=== PATIENT | male | born 1955 | race Caucasian/White ===

== ENCOUNTER → 2016-04-19 | Outpatient (REF) | LOC: WSOH 14:44 | DX: Z02.89 Encounter for other administrative examinations (principal) ==

== ENCOUNTER → 2016-07-27 | Outpatient (REF) | LOC: WSOH 08:28 | DX: Z00.00 Encounter for general adult medical examination without abnormal findings (principal) ==

== ENCOUNTER → 2016-10-24 | Outpatient (REF) | LOC: WSOH 07:54 | DX: Z00.00 Encounter for general adult medical examination without abnormal findings (principal) ==

== ENCOUNTER 2017-07-18 07:17 | Day surgery (SDC) | payer BC ==
[~2017-07-18] VITALS: Ht 182.9 cm; Wt 89.8 kg
[2017-07-18] MEDS ORDERED: NEXIUM 40MG40 MG PO (07:35)
[2017-07-18] MEDS ORDERED: ZOCOR 10MG10 MG PO (07:36)
[2017-07-18 07:43] VITALS: BP 115/70; PULSE 52; TEMP 97.5
[2017-07-18 09:58] VITALS: BP 112/80; PULSE 59; TEMP 97.5
[2017-07-18 10:00] VITALS: BP 112/77; PULSE 61
[2017-07-18 10:15] VITALS: BP 109/79; PULSE 62
[2017-07-18 10:30] VITALS: BP 101/75; PULSE 65
[2017-07-18 10:45] VITALS: BP 107/71; PULSE 62
== END 2017-07-18 11:00 ==
LOC: SDCO 07:17
DX: Z12.11 Encounter for screening for malignant neoplasm of colon (principal); K64.0 First degree hemorrhoids; K29.30 Chronic superficial gastritis without bleeding; K21.9 Gastro-esophageal reflux disease without esophagitis; K44.9 Diaphragmatic hernia without obstruction or gangrene
CPT/HCPCS: 43239; G0121; OP; J2250; J3010; J7030